=== PATIENT | male | born 1945 | race Caucasian/White ===

== ENCOUNTER 2022-03-18 23:57 | Inpatient (IN) | payer MEDICARE ==
[2022-03-19 01:52] LABS: #Basophils 0.1 10x3/uL (0.0-0.2); #Eosinphils 0.1 10x3/uL (0.0-0.5); #Monocytes 1.6 10x3/uL (0.0-1.1); #Neutrophils 13.3 10x3/uL (1.5-8.4); %Basophils 0.3 % (0.0-2.0); %Eosinophils 0.5 % (0.0-6.0); %Lymphocytes 8.7 % (18.0-47.0); %Monocytes 9.6 % (0.0-10.0); %Neutrophils 80.5 % (40.0-75.0); Hemoglobin 14.8 g/dL (13.5-17.5); Mean Corpuscular HGB CONC 33.4 g/dL (32.0-36.0); Mean Corpuscular Hemoglobin 29.1 pg (27.0-33.0); Mean Platelet Volume 10.1 fl (7.4-10.4); Platelet Count 218 10x3/uL (150-450); Red Blood Cell (RBC) Count 5.09 10x6/uL (4.32-5.72); White Blood Cell (WBC) Count 16.5 10x3/uL (3.5-10.5)
[2022-03-19 01:54] LABS: ALT (SGPT) 32 U/L (8-55); AST (SGOT) 25 U/L (5-34); Albumin 3.7 g/dL (3.4-4.8); Alkaline Phosphatase 103 U/L (40-110); Anion Gap 14 mmol/L (10-20); BUN (Urea Nitrogen) 21 mg/dL (8.4-25.7); Bilirubin, Total 1.7 mg/dL (0.2-1.2); CRP (Inflammatory) 17.45 mg/dL (= or < 0.5); Calc. Creatinine Clearance 0 mL/min (70-130); Calcium 8.2 mg/dL (7.8-10.44); Carbon Dioxide 25 mmol/L (23-31); Chloride 106 mmol/L (98-107); Estimated GFR 53; Globulin 2.8 g/dL (2.4-3.5); Glucose 121 mg/dL (83-110); Potassium 4.1 mmol/L (3.5-5.1); Protein, Total 6.5 g/dL (5.8-8.1); Sodium 141 mmol/L (136-145)
[2022-03-19 02:16] LABS: SARS-CoV-2 NAA Rapid Test Not Detected (NotDetected)
[2022-03-19 02:16] LABS: Bilirubin Neg (Negative); Blood, Urine 150 (Negative); Clarity Slightly Cloudy (Clear); Glucose, Urine (Dipstick) Normal (Negative); Ketone, Urine 5 mg/dL (Negative); Leukocyte Negative (Negative); Nitrite Negative (Negative); Protein, Urine (Dipstick) 30 mg/dl (Neg-Trace); Specific Gravity, Urine 1.015 (1.005-1.030); pH, Urine 6.5 (5.0-9.0)
[2022-03-19 02:25] LABS: Bacteria/HPF None Seen HPF (None Seen); Mucous/LPF 2+ LPF (<2+); RBC/HPF 21-50 HPF (0-3); Squamous Epithelial 0-3 HPF (0-3); WBC/HPF 0-3 HPF (0-3)
[2022-03-19] MEDS ORDERED: Calcium Carbonate 500 MG ChewTAB PO PRN (05:51)
[2022-03-19] MEDS ORDERED: Guaifenesin DM 100-10/5 ML UDCUP PO PRN (05:51)
[2022-03-19] MEDS ORDERED: Senokot S 8.6-50 MG TAB PO PRN (05:51)
[2022-03-19] MEDS ORDERED: Acetaminophen 325 MG TAB PO PRN (05:51)
[2022-03-19] MEDS ORDERED: Ondansetron PF 4 MG/2 ML Vial IVP PRN (05:51)
[2022-03-19] MEDS ORDERED: Acetaminophen/Codeine 30-300mg Tablet PO PRN (05:54)
[2022-03-19] MEDS ORDERED: methylPREDNISolone Sod Succ/PF 125 MG/2 ML VIAL IVP SCH (06:00)
[2022-03-19] MEDS: Lactated Ringer's 1,000 ML IV SCH ×2 (06:02→16:05)
[2022-03-19] MEDS ORDERED: methylPREDNISolone Sod Succ 1 GM in Sodium Chloride 0.9% 100 ML IVPB SCH (06:15)
[2022-03-19] MEDS: Famotidine 20 MG TAB PO SCH ×2 (09:20→20:37)
[2022-03-19] MEDS: Multivitamin W/ Minerals 1 TAB PO SCH (09:20)
[2022-03-19] MEDS: Benzonatate 100 MG CAP PO SCH ×3 (09:20→20:37)
[2022-03-19] MEDS ORDERED: Famotidine 20 MG TAB ONE (09:30)
[2022-03-19] MEDS ORDERED: Multivitamin W/ Minerals 1 TAB ONE (09:31)
[2022-03-19] MEDS ORDERED: Benzonatate 100 MG CAP ONE (09:32)
[2022-03-19] MEDS: Lisinopril 5 MG TAB PO SCH (10:55)
[2022-03-19 15:48] VITALS: BMI 34.0
[2022-03-20] MEDS: Lactated Ringer's 1,000 ML IV SCH (02:10)
[2022-03-20 05:13] LABS: #Monocytes 0.4 10x3/uL (0.0-1.1); #Neutrophils 14.7 10x3/uL (1.5-8.4); %Basophils 0.1 % (0.0-2.0); %Eosinophils 0.1 % (0.0-6.0); %Lymphocytes 6.9 % (18.0-47.0); %Monocytes 2.2 % (0.0-10.0); %Neutrophils 90.2 % (40.0-75.0); Hemoglobin 14.3 g/dL (13.5-17.5); Mean Corpuscular HGB CONC 33.9 g/dL (32.0-36.0); Mean Corpuscular Hemoglobin 28.6 pg (27.0-33.0); Mean Corpuscular Volume 84.4 fl (81.2-95.1); Mean Platelet Volume 10.4 fl (7.4-10.4); Platelet Count 211 10x3/uL (150-450); RBC Distribution Width 12.8 % (11.5-14.5); White Blood Cell (WBC) Count 16.3 10x3/uL (3.5-10.5)
[2022-03-20 05:26] LABS: Anion Gap 15 mmol/L (10-20); BUN (Urea Nitrogen) 22 mg/dL (8.4-25.7); Calc. Creatinine Clearance 87 mL/min (70-130); Calcium 9.2 mg/dL (7.8-10.44); Carbon Dioxide 19 mmol/L (23-31); Chloride 110 mmol/L (98-107); Estimated GFR 61; Glucose 148 mg/dL (83-110); Magnesium 2.1 mg/dL (1.6-2.6); Potassium 4.2 mmol/L (3.5-5.1); Sodium 140 mmol/L (136-145)
[2022-03-20 05:41] LABS: Thyroid Stimulating Hormone 0.5266 uIU/mL (0.35-4.94)
[2022-03-20] MEDS: Lisinopril 5 MG TAB PO SCH (08:37)
[2022-03-20] MEDS: Famotidine 20 MG TAB PO SCH ×2 (08:38→20:05)
[2022-03-20] MEDS: Benzonatate 100 MG CAP PO SCH ×3 (08:38→20:05)
[2022-03-20] MEDS: Multivitamin W/ Minerals 1 TAB PO SCH (08:38)
[2022-03-20] MEDS ORDERED: Iopamidol 300 61% 100 ML VIAL FS ONE (09:39)
[2022-03-21 04:16] LABS: #Monocytes 1.2 10x3/uL (0.0-1.1); #Neutrophils 15.2 10x3/uL (1.5-8.4); %Basophils 0.2 % (0.0-2.0); %Lymphocytes 12.3 % (18.0-47.0); %Monocytes 6.5 % (0.0-10.0); %Neutrophils 80.3 % (40.0-75.0); Mean Corpuscular HGB CONC 33.4 g/dL (32.0-36.0); Mean Corpuscular Hemoglobin 28.8 pg (27.0-33.0); Mean Corpuscular Volume 86.2 fl (81.2-95.1); Mean Platelet Volume 10.7 fl (7.4-10.4); Platelet Count 242 10x3/uL (150-450); Red Blood Cell (RBC) Count 4.86 10x6/uL (4.32-5.72); White Blood Cell (WBC) Count 18.9 10x3/uL (3.5-10.5)
[2022-03-21 04:36] LABS: Anion Gap 10 mmol/L (10-20); BUN (Urea Nitrogen) 25 mg/dL (8.4-25.7); Calc. Creatinine Clearance 90 mL/min (70-130); Calcium 9.1 mg/dL (7.8-10.44); Carbon Dioxide 24 mmol/L (23-31); Chloride 109 mmol/L (98-107); Estimated GFR 63; Glucose 100 mg/dL (83-110); Potassium 3.8 mmol/L (3.5-5.1); Sodium 139 mmol/L (136-145)
[2022-03-21] MEDS: Benzonatate 100 MG CAP PO SCH ×3 (08:38→21:32)
[2022-03-21] MEDS: Famotidine 20 MG TAB PO SCH ×2 (08:38→21:32)
[2022-03-21] MEDS: Lisinopril 5 MG TAB PO SCH (08:38)
[2022-03-21] MEDS: Multivitamin W/ Minerals 1 TAB PO SCH (08:39)
[2022-03-22] MEDS: Multivitamin W/ Minerals 1 TAB PO SCH (10:39)
[2022-03-22] MEDS: Benzonatate 100 MG CAP PO SCH ×3 (10:39→21:49)
[2022-03-22] MEDS: Lisinopril 5 MG TAB PO SCH (10:39)
[2022-03-22] MEDS: Famotidine 20 MG TAB PO SCH ×2 (10:41→21:49)
[2022-03-23 04:24] LABS: #Basophils 0.1 10x3/uL (0.0-0.2); #Eosinphils 0.4 10x3/uL (0.0-0.5); #Monocytes 1.1 10x3/uL (0.0-1.1); #Neutrophils 7.3 10x3/uL (1.5-8.4); %Basophils 0.8 % (0.0-2.0); %Eosinophils 3.6 % (0.0-6.0); %Lymphocytes 21.7 % (18.0-47.0); %Monocytes 9.2 % (0.0-10.0); %Neutrophils 62.3 % (40.0-75.0); Mean Corpuscular HGB CONC 33.9 g/dL (32.0-36.0); Mean Corpuscular Hemoglobin 28.7 pg (27.0-33.0); Mean Corpuscular Volume 84.5 fl (81.2-95.1); Mean Platelet Volume 9.7 fl (7.4-10.4); Platelet Count 257 10x3/uL (150-450); RBC Distribution Width 12.8 % (11.5-14.5); Red Blood Cell (RBC) Count 5.23 10x6/uL (4.32-5.72); White Blood Cell (WBC) Count 11.7 10x3/uL (3.5-10.5)
[2022-03-23 04:34] LABS: Anion Gap 12 mmol/L (10-20); BUN (Urea Nitrogen) 23 mg/dL (8.4-25.7); Calc. Creatinine Clearance 85 mL/min (70-130); Calcium 9.2 mg/dL (7.8-10.44); Carbon Dioxide 23 mmol/L (23-31); Chloride 107 mmol/L (98-107); Estimated GFR 59; Glucose 109 mg/dL (83-110); Sodium 138 mmol/L (136-145)
[2022-03-23] MEDS: Lisinopril 5 MG TAB PO SCH (10:23)
[2022-03-23] MEDS: Benzonatate 100 MG CAP PO SCH (10:24)
[2022-03-23] MEDS: Multivitamin W/ Minerals 1 TAB PO SCH (10:24)
[2022-03-23] MEDS: Famotidine 20 MG TAB PO SCH (10:24)
[2022-03-23 14:34] VITALS: BP 144/73; TEMP 98
== END 2022-03-23 15:15 | disposition home health service (06) | DRG 871 ==
LOC: CSHERS 23:57 → CSHERHOLD 03-19 06:07 → CSHTELE 03-19 14:51
PROVIDERS: ADMIT Student in an Organized Health Care Education/Training Program; ATTEND Internal Medicine
DX: A41.9 Sepsis, unspecified organism (principal); J18.9 Pneumonia, unspecified organism; N17.9 Acute kidney failure, unspecified; R53.81 Other malaise; Z20.822 Contact with and (suspected) exposure to COVID-19; E86.0 Dehydration; M19.90 Unspecified osteoarthritis, unspecified site; I12.9 Hypertensive chronic kidney disease with stage 1 through stage 4 chronic kidney disease, or unspecified chronic kidney disease; B34.8 Other viral infections of unspecified site; N18.30 Chronic kidney disease, stage 3 unspecified; G35 Multiple sclerosis; Z79.82 Long term (current) use of aspirin; Z79.899 Other long term (current) drug therapy; Z90.49 Acquired absence of other specified parts of digestive tract
CPT/HCPCS: 36415; 51701; 70553; 71045; 71260; 80048; 80053; 81003; 81015; 82550; 82607; 83605; 83735; 83880; 84145; 84443; 84484; 85025; 85652; 86140; 87040; 87077; 87086; 87149; 87633; 87798; 87804; 93005; 96361; 96365; J1650; J1956; J2930; J3490; J7120; Q9967; U0002

== ENCOUNTER 2023-01-21 10:44 | Observation (INO) | payer MEDICARE ==
[2023-01-21 11:28] LABS: #Basophils 0.1 10x3/uL (0.0-0.2); #Eosinphils 0.4 10x3/uL (0.0-0.5); #Monocytes 0.6 10x3/uL (0.0-1.1); #Neutrophils 4.5 10x3/uL (1.5-8.4); %Basophils 0.8 % (0.0-2.0); %Eosinophils 5.9 % (0.0-6.0); %Lymphocytes 24.3 % (18.0-47.0); %Monocytes 7.9 % (0.0-10.0); %Neutrophils 60.7 % (40.0-75.0); Hematocrit 46.9 % (38.8-50.0); Hemoglobin 15.6 g/dL (13.5-17.5); Mean Corpuscular HGB CONC 33.3 g/dL (32.0-36.0); Mean Corpuscular Hemoglobin 28.5 pg (27.0-33.0); Mean Corpuscular Volume 85.6 fl (81.2-95.1); Mean Platelet Volume 9.9 fl (7.4-10.4); Platelet Count 251 10x3/uL (150-450); RBC Distribution Width 12.9 % (11.5-14.5); Red Blood Cell (RBC) Count 5.48 10x6/uL (4.32-5.72); White Blood Cell (WBC) Count 7.4 10x3/uL (3.5-10.5)
[2023-01-21 11:34] LABS: ALT (SGPT) 36 U/L (8-55); AST (SGOT) 31 U/L (5-34); Albumin 3.9 g/dL (3.4-4.8); Alkaline Phosphatase 95 U/L (40-110); Anion Gap 12 mmol/L (10-20); BUN (Urea Nitrogen) 19 mg/dL (8.4-25.7); Calc. Creatinine Clearance 0 mL/min (70-130); Carbon Dioxide 25 mmol/L (23-31); Chloride 110 mmol/L (98-107); Estimated GFR 59; Globulin 3.3 g/dL (2.4-3.5); Glucose 120 mg/dL (83-110); Potassium 3.8 mmol/L (3.5-5.1); Protein, Total 7.2 g/dL (5.8-8.1); Sodium 143 mmol/L (136-145)
[2023-01-21 12:10] LABS: Bilirubin Neg (Negative); Blood, Urine Negative (Negative); Clarity Clear (Clear); Glucose, Urine (Dipstick) Normal (Negative); Ketone, Urine Negative (Negative); Leukocyte Negative (Negative); Nitrite Negative (Negative); Protein, Urine (Dipstick) 15 mg/dl (Neg-Trace)
[2023-01-21 12:21] LABS: CAUTI Indications for Culture Alt mental st,lethar; RBC/HPF 0-3 HPF (0-3); WBC/HPF 0-3 HPF (0-3)
[2023-01-21 12:22] LABS: Bacteria/HPF Rare-Few HPF (None Seen); Mucous/LPF 1+ LPF (<2+)
[2023-01-21 12:23] LABS: Urine Culture Reflex No No
[2023-01-21 15:01] LABS: Troponin I Less than 0.010 ng/mL (< 0.028)
[2023-01-21] MEDS ORDERED: Ondansetron ODT 4 MG TAB PO PRN (16:57)
[2023-01-21] MEDS ORDERED: Ondansetron PF 4 MG/2 ML Vial IVP PRN (16:57)
[2023-01-21 18:43] VITALS: BMI 29.7
[2023-01-21] MEDS: Lisinopril 20 MG TAB PO SCH (21:11)
[2023-01-22 03:39] LABS: #Basophils 0.1 10x3/uL (0.0-0.2); #Eosinphils 0.6 10x3/uL (0.0-0.5); #Monocytes 0.8 10x3/uL (0.0-1.1); #Neutrophils 5.2 10x3/uL (1.5-8.4); %Basophils 0.8 % (0.0-2.0); %Eosinophils 6.1 % (0.0-6.0); %Lymphocytes 28.3 % (18.0-47.0); %Monocytes 8.9 % (0.0-10.0); %Neutrophils 55.6 % (40.0-75.0); Hematocrit 44.6 % (38.8-50.0); Hemoglobin 15.3 g/dL (13.5-17.5); Mean Corpuscular HGB CONC 34.3 g/dL (32.0-36.0); Mean Corpuscular Hemoglobin 29.2 pg (27.0-33.0); Mean Corpuscular Volume 85.1 fl (81.2-95.1); Mean Platelet Volume 10.4 fl (7.4-10.4); Platelet Count 224 10x3/uL (150-450); RBC Distribution Width 12.9 % (11.5-14.5); Red Blood Cell (RBC) Count 5.24 10x6/uL (4.32-5.72); White Blood Cell (WBC) Count 9.3 10x3/uL (3.5-10.5)
[2023-01-22 04:11] LABS: Anion Gap 13 mmol/L (10-20); BUN (Urea Nitrogen) 18 mg/dL (8.4-25.7); Calc. Creatinine Clearance 101 mL/min (70-130); Calcium 8.7 mg/dL (7.8-10.44); Carbon Dioxide 21 mmol/L (23-31); Chloride 111 mmol/L (98-107); Estimated GFR 83; Glucose 90 mg/dL (83-110); Potassium 3.9 mmol/L (3.5-5.1); Sodium 141 mmol/L (136-145)
[2023-01-22] MEDS: Acetaminophen 325 MG TAB PO PRN ×3 (05:03→20:25)
[2023-01-22] MEDS: Lisinopril 20 MG TAB PO SCH ×2 (09:05→20:17)
[2023-01-23 03:33] LABS: #Basophils 0.1 10x3/uL (0.0-0.2); #Eosinphils 0.7 10x3/uL (0.0-0.5); #Monocytes 0.8 10x3/uL (0.0-1.1); #Neutrophils 4.7 10x3/uL (1.5-8.4); %Basophils 0.9 % (0.0-2.0); %Lymphocytes 28.8 % (18.0-47.0); %Monocytes 8.7 % (0.0-10.0); %Neutrophils 53.3 % (40.0-75.0); Hematocrit 45.8 % (38.8-50.0); Hemoglobin 15.6 g/dL (13.5-17.5); Mean Corpuscular HGB CONC 34.1 g/dL (32.0-36.0); Mean Corpuscular Hemoglobin 28.9 pg (27.0-33.0); Mean Platelet Volume 10.3 fl (7.4-10.4); Platelet Count 228 10x3/uL (150-450); RBC Distribution Width 12.7 % (11.5-14.5); Red Blood Cell (RBC) Count 5.39 10x6/uL (4.32-5.72); White Blood Cell (WBC) Count 8.8 10x3/uL (3.5-10.5)
[2023-01-23 03:43] LABS: Anion Gap 13 mmol/L (10-20); BUN (Urea Nitrogen) 23 mg/dL (8.4-25.7); Calc. Creatinine Clearance 75 mL/min (70-130); Calcium 8.7 mg/dL (7.8-10.44); Carbon Dioxide 21 mmol/L (23-31); Chloride 109 mmol/L (98-107); Estimated GFR 58; Glucose 99 mg/dL (83-110); Sodium 139 mmol/L (136-145)
[2023-01-23] MEDS: Melatonin 3 MG TAB PO PRN ×2 (03:43→20:12)
[2023-01-23] MEDS: Lisinopril 20 MG TAB PO SCH ×2 (08:16→19:59)
[2023-01-23] MEDS: Amlodipine 5 MG TAB PO SCH (08:16)
[2023-01-23] MEDS: Aspirin 81 mg Enteric Coated Tablet PO SCH (08:16)
[2023-01-24 03:57] LABS: #Basophils 0.1 10x3/uL (0.0-0.2); #Eosinphils 0.8 10x3/uL (0.0-0.5); #Monocytes 0.8 10x3/uL (0.0-1.1); #Neutrophils 5.9 10x3/uL (1.5-8.4); %Basophils 0.8 % (0.0-2.0); %Eosinophils 7.6 % (0.0-6.0); %Lymphocytes 23.8 % (18.0-47.0); %Monocytes 7.7 % (0.0-10.0); %Neutrophils 59.7 % (40.0-75.0); Hematocrit 47.8 % (38.8-50.0); Hemoglobin 16.2 g/dL (13.5-17.5); Mean Corpuscular HGB CONC 33.9 g/dL (32.0-36.0); Mean Corpuscular Hemoglobin 28.6 pg (27.0-33.0); Mean Corpuscular Volume 84.5 fl (81.2-95.1); Mean Platelet Volume 10.4 fl (7.4-10.4); Platelet Count 245 10x3/uL (150-450); RBC Distribution Width 12.8 % (11.5-14.5); Red Blood Cell (RBC) Count 5.66 10x6/uL (4.32-5.72); White Blood Cell (WBC) Count 9.9 10x3/uL (3.5-10.5)
[2023-01-24 04:11] LABS: Anion Gap 15 mmol/L (10-20); BUN (Urea Nitrogen) 22 mg/dL (8.4-25.7); Calc. Creatinine Clearance 91 mL/min (70-130); Carbon Dioxide 20 mmol/L (23-31); Chloride 107 mmol/L (98-107); Estimated GFR 74; Glucose 95 mg/dL (83-110); Potassium 4.3 mmol/L (3.5-5.1); Sodium 138 mmol/L (136-145)
[2023-01-24] MEDS: Aspirin 81 mg Enteric Coated Tablet PO SCH (07:56)
[2023-01-24] MEDS: Lisinopril 20 MG TAB PO SCH ×2 (07:56→20:04)
[2023-01-24] MEDS: Amlodipine 5 MG TAB PO SCH (07:56)
[2023-01-24] MEDS: Acetaminophen 325 MG TAB PO PRN (07:57)
[2023-01-24] MEDS ORDERED: Senokot 8.6 MG TAB PO SCH (13:00)
[2023-01-24] MEDS: Melatonin 3 MG TAB PO PRN (20:20)
[2023-01-25 03:48] LABS: Anion Gap 15 mmol/L (10-20); BUN (Urea Nitrogen) 25 mg/dL (8.4-25.7); Calc. Creatinine Clearance 93 mL/min (70-130); Calcium 9.2 mg/dL (7.8-10.44); Carbon Dioxide 19 mmol/L (23-31); Chloride 106 mmol/L (98-107); Estimated GFR 75; Glucose 103 mg/dL (83-110); Potassium 4.3 mmol/L (3.5-5.1); Sodium 136 mmol/L (136-145)
[2023-01-25 04:35] LABS: #Basophils 0.1 10x3/uL (0.0-0.2); #Eosinphils 0.7 10x3/uL (0.0-0.5); #Monocytes 0.9 10x3/uL (0.0-1.1); #Neutrophils 6.4 10x3/uL (1.5-8.4); %Basophils 0.8 % (0.0-2.0); %Lymphocytes 21.6 % (18.0-47.0); %Monocytes 8.9 % (0.0-10.0); %Neutrophils 61.3 % (40.0-75.0); Hematocrit 50.1 % (38.8-50.0); Hemoglobin 16.3 g/dL (13.5-17.5); Mean Corpuscular HGB CONC 32.5 g/dL (32.0-36.0); Mean Corpuscular Hemoglobin 27.9 pg (27.0-33.0); Mean Corpuscular Volume 85.8 fl (81.2-95.1); Mean Platelet Volume 10.3 fl (7.4-10.4); Platelet Count 244 10x3/uL (150-450); RBC Distribution Width 13.1 % (11.5-14.5); Red Blood Cell (RBC) Count 5.84 10x6/uL (4.32-5.72); White Blood Cell (WBC) Count 10.3 10x3/uL (3.5-10.5)
[2023-01-25] MEDS: Aspirin 81 mg Enteric Coated Tablet PO SCH (09:09)
[2023-01-25] MEDS: Amlodipine 5 MG TAB PO SCH (09:09)
[2023-01-25] MEDS: Lisinopril 20 MG TAB PO SCH (09:10)
[2023-01-25 09:23] VITALS: TEMP 97.6
[2023-01-25 15:50] VITALS: BP 137/72
== END 2023-01-25 15:07 ==
LOC: CSHERS 10:44 → CSHTELE 16:35
PROVIDERS: ADMIT Internal Medicine; ATTEND Internal Medicine
DX: M54.16 Radiculopathy, lumbar region (principal); R29.6 Repeated falls; I10 Essential (primary) hypertension; N40.0 Benign prostatic hyperplasia without lower urinary tract symptoms; Z79.82 Long term (current) use of aspirin; Z79.899 Other long term (current) drug therapy
CPT/HCPCS: 71045; 80048 ×4; 80053; 81001; 83880; 84484; 85025 ×5; 93005; 94760 ×3; 97110 ×2; 97530 ×3; 99285; G0378 ×6; 36415